=== PATIENT | female | born 1980 | race Two or more races ===

== ENCOUNTER → 2019-05-03 | Outpatient (CLI) | payer OTHER ==
[~2019-05-03] MED LIST: [UNRECOGNIZED DRUG - OTHER]
== END | disposition home or self-care (01) ==
LOC: RX STUDY 08:18
DX: N93.0 Postcoital and contact bleeding (principal)

== ENCOUNTER 2019-12-15 17:14 | Outpatient (CLI) | payer OTHER | END 2019-12-15 17:15 | disposition home or self-care (01) | LOC: LAB 17:14 | PROVIDERS: ATTEND Physical Medicine & Rehabilitation | DX: R06.02 Shortness of breath (principal); Z20.828 Contact with and (suspected) exposure to other viral communicable diseases ==

== ENCOUNTER → 2020-07-26 15:00 | Outpatient (CLI) | payer OTHER | END | disposition home or self-care (01) | LOC: PPH VACUNA 15:00 | DX: Z23 Encounter for immunization (principal) ==

== ENCOUNTER 2020-10-01 16:24 | Outpatient (CLI) | payer OTHER | END 2020-10-01 17:16 | disposition home or self-care (01) | LOC: NST 16:24 | PROVIDERS: ATTEND Obstetrics & Gynecology Maternal & Fetal Medicine | DX: Z34.82 Encounter for supervision of other normal pregnancy, second trimester (principal) ==

== ENCOUNTER 2021-01-11 10:48 | Outpatient (CLI) | payer OTHER | END 2021-01-11 12:11 | disposition home or self-care (01) | LOC: NST 10:48 | PROVIDERS: ATTEND Obstetrics & Gynecology Maternal & Fetal Medicine | DX: Z34.83 Encounter for supervision of other normal pregnancy, third trimester (principal) ==

== ENCOUNTER 2021-03-06 08:00 | Outpatient (CLI) | payer OTHER | END 2021-03-06 08:30 | disposition home or self-care (01) | LOC: PPH VACUNA 08:00 | PROVIDERS: ATTEND Emergency Medicine Pediatric Emergency Medicine | DX: Z23 Encounter for immunization (principal) ==

== ENCOUNTER 2024-02-25 08:12 | Emergency (ER) | payer OTHER ==
[~2024-02-25] VITALS: Ht 172.7 cm; Wt 72.6 kg
[2024-02-25 08:25] VITALS: BP 112/82; O2SAT 97
[2024-02-25] MEDS ORDERED: ORPHENADRINE CITRATE 30 MG/ML AMPUL IM ONE (08:45)
[2024-02-25] MEDS ORDERED: MEPERIDINE HCL/PF 25 MG/ML VIAL IM ONE (08:45)
[2024-02-25] MEDS ORDERED: MEDROLPACK PO (10:43)
[2024-02-25] MEDS ORDERED: NORFLEX100MG PO (10:43)
== END 2024-02-25 11:38 | disposition home or self-care (01) ==
LOC: ER 08:14
DX: M62.830 Muscle spasm of back (principal); Z88.6 Allergy status to analgesic agent; M19.91 Primary osteoarthritis, unspecified site

== ENCOUNTER 2024-07-06 16:24 | Emergency (ER) | payer OTHER ==
[~2024-07-06] VITALS: Ht 180.3 cm; Wt 75.3 kg
[~2024-07-06 16:24] MED LIST changes: +MEDROLPACK PO; +NORFLEX100MG PO
[2024-07-06 16:32] VITALS: BP 152/69; O2SAT 99
[2024-07-06] MEDS ORDERED: [UNRECOGNIZED DRUG - OTHER] (16:32)
[2024-07-06] MEDS ORDERED: KEVZARA200 MG/1.2 (16:32)
[2024-07-06] MEDS ORDERED: CEFTRIAXONE SODIUM 1,000 MG VIAL ONE (16:56)
[2024-07-06] MEDS ORDERED: CEFTRIAXONE SODIUM 1,000 MG VIAL IV ONE (17:00)
[2024-07-06] MEDS ORDERED: 0.9 % SODIUM CHLORIDE 1,000 ML IV SCH (17:00)
[2024-07-06] MEDS ORDERED: OxyCODONE HCL/APAP UD (PERCOCET) PO ONE ×2 (17:00→20:45)
[2024-07-06 17:25] LABS: HEMATOCRIT 42.3 % (36.0-45.00); HEMOGLOBIN 13.9 g/dL (12.0-15.00); MEAN CELL VOLUME 88.8 fL (80.00-100.00); MEAN CORPUSCULAR HEMOGLOBIN 29.2 pg (27.00-32.0); MEAN CORPUSCULAR HGB CONC 32.9 g/dl (32.0-36.0); PLATELET COUNT 179 K/uL (150-450); RED BLOOD COUNT 4.76 M/uL (4.00-6.00); RED CELL DISTRIBUTION WIDTH 13.9 % (11.5-14.5)
[2024-07-06 17:38] LABS: PH,URINE 5.5 (5.0-8.0); URINE APPEARANCE Turbid; URINE BILIRRUBIN Negative (NEGATIVE); URINE BLOOD Large; URINE COLOR Dark Yellow; URINE GLUCOSE Negative (NEGATIVE); URINE KETONE Trace (NEGATIVE); URINE LEUKOCYTE Small; URINE NITRATE Negative
[2024-07-06 17:42] LABS: URINE BACTERIA 1539.7 uL (0.0-1933); URINE EPITHELIAL CELLS 57.3 uL (0.0-38.8); URINE WBC 41.4 uL (0.0-23.2)
[2024-07-06 17:54] LABS: ALBUMIN 3.9 gm/dL (3.4-5.0); BILIRUBIN TOTAL 0.31 mg/dL (0.3-1.2); CALCIUM 9.1 mg/dL (8.5-10.1); CREATININE SERUM 0.75 mg/dL (0.55-1.02); GFR 85.16; GLOBULINA 3.1 G/DL (2.4-3.5); POTASSIUM 3.58 mEq/L (3.5-5.1)
[2024-07-06 18:12] LABS: URINE CAST 0.14 uL (0.0-1.40); URINE CRYSTALS FEW /HPF; URINE PROTEIN 100 (NEGATIVE); URINE RBC > 10558.9 uL (0.0-20.8)
[2024-07-06 18:13] LABS: URINE MUCUS MODERATE
== END 2024-07-06 21:19 | disposition home or self-care (01) ==
LOC: ER 16:27
PROVIDERS: General Practice
DX: N13.2 Hydronephrosis with renal and ureteral calculous obstruction (principal); Z88.6 Allergy status to analgesic agent

== ENCOUNTER 2024-08-03 10:50 | Day surgery (SDC) | payer OTHER ==
[2024-08-01 09:12] LABS: HEMOGLOBIN 13.5 g/dL (12.0-15.00); MEAN CELL VOLUME 86.8 fL (80.00-100.00); MEAN CORPUSCULAR HEMOGLOBIN 29.3 pg (27.00-32.0); MEAN CORPUSCULAR HGB CONC 33.7 g/dl (32.0-36.0); PLATELET COUNT 163 K/uL (150-450); RED BLOOD COUNT 4.61 M/uL (4.00-6.00); RED CELL DISTRIBUTION WIDTH 13.8 % (11.5-14.5)
[2024-08-01 09:19] LABS: PH,URINE 7.5 (5.0-8.0); URINE APPEARANCE Clear; URINE BILIRRUBIN Negative (NEGATIVE); URINE BLOOD Large; URINE COLOR Yellow; URINE GLUCOSE Negative (NEGATIVE); URINE KETONE Negative (NEGATIVE); URINE LEUKOCYTE Negative; URINE NITRATE Negative; URINE PROTEIN Negative (NEGATIVE); URINE UROBILINOGEN 0.2 E.U./dl
[2024-08-01 09:20] LABS: URINE BACTERIA 155.4 uL (0.0-1933); URINE EPITHELIAL CELLS 13.2 uL (0.0-38.8); URINE RBC 611.8 uL (0.0-20.8); URINE WBC 9.4 uL (0.0-23.2)
[2024-08-01 09:21] LABS: INR 0.96; PARTIAL THROMBOPLASTIN TIME 25.4 SECONDS (22.0-34.0); PROTHROMBIN TIME 10.5 SECONDS (9.0-11.5)
[2024-08-01 09:33] LABS: COVID-19 AG NEGATIVE (NEGATIVE)
[2024-08-01 09:40] VITALS: BP 128/85
[2024-08-01 10:00] LABS: CALCIUM 8.8 mg/dL (8.5-10.1); CREATININE SERUM 0.83 mg/dL (0.55-1.02); GFR 75.39; POTASSIUM 3.74 mEq/L (3.5-5.1)
[~2024-08-03] VITALS: Ht 172.7 cm; Wt 75.3 kg
[~2024-08-03 10:50] MED LIST changes: +CODE1TAB37 PO; +ESTRADIOL2 MG; +HYDROXYCHLOROQ200 MG; +INTEGRA PLUS C1 EACH; +KEVZARA200 MG/1.2; +NIFEDIPINE ER30 M1; +PREDNISONE PO; +PREDNISONE10 M2; +PRENATAL TABLE1 EAC1 PO; +Procardia Xl 30MG TA PO; +RAYOS5 MG; +XOPENEX0.63 MG/3 IH; +[UNRECOGNIZED DRUG - OTHER]
[2024-08-03] MEDS ORDERED: GENTAMICIN SULFATE 40 MG/ML VIAL ONE (15:15)
[2024-08-03] MEDS ORDERED: PHENAZOPYRIDINE HCL 100 MG TABLET PO ONE (18:45)
[2024-08-03] MEDS ORDERED: OxyCODONE HCL/APAP UD (PERCOCET) PO ONE (18:45)
[2024-08-03] MEDS ORDERED: MORPHINE SULFATE 4 MG/ML VIAL IV ONE (22:50)
== END 2024-08-04 00:25 | disposition home or self-care (01) ==
LOC: CIR.AMB 10:50
PROVIDERS: ATTEND Urology
DX: N20.1 Calculus of ureter (principal); Z88.6 Allergy status to analgesic agent

== ENCOUNTER 2024-08-09 12:57 | Outpatient (CLI) | payer OTHER ==
[~2024-08-09 12:57] MED LIST changes: -CODE1TAB37 PO; -ESTRADIOL2 MG; -HYDROXYCHLOROQ200 MG; -INTEGRA PLUS C1 EACH; -NIFEDIPINE ER30 M1; -PREDNISONE PO; -PREDNISONE10 M2; -PRENATAL TABLE1 EAC1 PO; -Procardia Xl 30MG TA PO; -RAYOS5 MG; -XOPENEX0.63 MG/3 IH
[2024-08-09 14:05] LABS: PH,URINE 5.5 (5.0-8.0); URINE APPEARANCE Cloudy; URINE BACTERIA 121.1 uL (0.0-1933); URINE BILIRRUBIN Small (NEGATIVE); URINE BLOOD Large; URINE COLOR Orange; URINE EPITHELIAL CELLS 12.1 uL (0.0-38.8); URINE GLUCOSE Negative (NEGATIVE); URINE KETONE Negative (NEGATIVE); URINE LEUKOCYTE Moderate; URINE NITRATE Positive; URINE RBC 2211.4 uL (0.0-20.8); URINE WBC 163.6 uL (0.0-23.2)
[2024-08-09 14:58] LABS: URINE CAST 0.29 uL (0.0-1.40); URINE PROTEIN 100 (NEGATIVE)
== END 2024-08-09 13:01 | disposition home or self-care (01) ==
LOC: LAB 12:57
PROVIDERS: ATTEND Urology
DX: N30.00 Acute cystitis without hematuria (principal)

== ENCOUNTER 2024-08-12 16:29 | Day surgery (SDC) | payer OTHER ==
[~2024-08-12] VITALS: Ht 172.7 cm; Wt 75.3 kg
--- NOTE | 2024-08-12 16:18 | NUR ---
PTE ALERTA Y ORIENTADA VIENE CON ORDEN DE ADMISION POR EL PARA FROILAN EN
--- NOTE | 2024-08-12 16:19 | NUR ---
PTE PARA ADMISION POR EL PARA CIRUGIA EN EL CECILIO DE [facility].
[~2024-08-12 16:29] MED LIST changes: +CODE1TAB37 PO; +ESTRADIOL2 MG; +HYDROXYCHLOROQ200 MG; +INTEGRA PLUS C1 EACH; +NIFEDIPINE ER30 M1; +PREDNISONE PO; +PREDNISONE10 M2; +PRENATAL TABLE1 EAC1 PO; +Procardia Xl 30MG TA PO; +RAYOS5 MG; +XOPENEX0.63 MG/3 IH
[2024-08-12] MEDS ORDERED: GENTAMICIN SULFATE/PF 10 MG/ML VIAL IV STA (17:32)
[2024-08-12] MEDS ORDERED: TAMSULOSIN HCL 0.4 MG CAP PO STA (23:43)
[2024-08-12] MEDS ORDERED: PHENAZOPYRIDINE HCL 100 MG TABLET PO ONE (23:45)
[2024-08-13 01:26] VITALS: BP 114/58; O2SAT 100
== END 2024-08-13 01:00 | disposition home or self-care (01) ==
LOC: CIR.AMB 16:29 → ER 16:29 → CIR.AMB 16:29 → SEC-K 17:55 → O/R 17:55 → ER 17:55 → SEC-K 18:44 → O/R 18:44 → CIR.AMB 08-13 01:00 → OB/GYN 08-16 16:22 → O/R 08-16 16:22 → OB/GYN 08-16 20:10
PROVIDERS: ATTEND Emergency Medicine
DX: T83.122A Displacement of indwelling ureteral stent, initial encounter (principal)